=== PATIENT | female | born 1990 | race Caucasian/White ===

== ENCOUNTER 2019-02-10 13:29 | Emergency (ER) | payer MEDICAID ==
[~2019-02-10] VITALS: Ht 170.2 cm; Wt 61.2 kg
[2019-02-10 15:57] VITALS: BP 139/88
[2019-02-10] MEDS ORDERED: KETOROLAC TROMETH 30 MG/ML 1ML VIAL IV ONE (16:00)
[2019-02-10] MEDS ORDERED: SODIUM CHLORIDE 0.9% 500 ML IV ONE (16:00)
[2019-02-10 16:14] LABS: Basophils # (auto) 0 uL; Basophils % (auto) 0.5 % (0.0-2.0); Eosinophils # (auto) 0 uL; Eosinophils % (auto) 0.3 % (0.0-7.0); Hematocrit 40.3 % (36.0-46.0); Hemoglobin 13.7 g/dL (12.2-16.2); Lymphocytes # (auto) 1.2 uL; Lymphocytes % (auto) 13.5 % (10.0-50.0); Mean Corpuscular Hemoglobin 30.8 pg (28.0-32.0); Mean Corpuscular Volume 90.4 fL (80.0-100.0); Monocytes # (auto) 0.5 uL; Neutrophils # (auto) 7.2 uL; Neutrophils % (auto) 79.7 % (37.0-80.0); Nucleated Red Blood Cells % 0.1 %; Platelet Count (auto) 297 10^3/uL (140-450); Red Blood Cells 4.46 10^6/uL (4.0-5.20); Red Cell Distribution Width 13.2 % (11.8-14.3)
[2019-02-10 16:26] LABS: Albumin 4.5 g/dL (3.4-5.0); BUN/Creatinine Ratio 10.5; Calcium 9.4 mg/dL (8.5-10.1); Potassium 3.7 mmol/L (3.5-5.1)
[2019-02-10 16:30] LABS: Bilirubin, Total 0.2 mg/dL (0.2-1.0); Total Protein 8.1 g/dL (6.4-8.2)
[2019-02-10 17:08] LABS: Urine Bacteria FEW /hpf (None Seen); Urine Blood Negative /uL (Negative); Urine Specific Gravity 1.004 (1.001-1.035); Urine WBC 4 /hpf (0 - 5)
== END 2019-02-10 17:09 | disposition home or self-care (01) ==
LOC: ER 13:29
DX: K80.20 Calculus of gallbladder without cholecystitis without obstruction (principal)
CPT/HCPCS: 36415; 76705; 80053; 81001; 81025; 83690; 85025; 99284; J1885; J7030

== ENCOUNTER 2020-06-16 21:19 | Emergency (ER) | payer MEDICAID ==
[~2020-06-16] VITALS: Ht 170.2 cm; Wt 63.5 kg
[2020-06-16] MEDS ORDERED: FAMOTIDINE 20 MG TAB PO ONE (21:45)
[2020-06-16] MEDS ORDERED: predniSONE 20 MG TAB PO ONE (21:45)
[2020-06-17 01:25] VITALS: BP 184/92
== END 2020-06-17 04:40 | disposition home or self-care (01) ==
LOC: ER 21:21
DX: T78.40XA Allergy, unspecified, initial encounter (principal); M79.89 Other specified soft tissue disorders; R03.0 Elevated blood-pressure reading, without diagnosis of hypertension; X58.XXXA Exposure to other specified factors, initial encounter; Y93.89 Activity, other specified; Y92.89 Other specified places as the place of occurrence of the external cause; Y99.8 Other external cause status
CPT/HCPCS: 81025; 99283; J7512